=== PATIENT | female | born 1995 | race Caucasian/White ===

== ENCOUNTER 2017-10-05 18:44 | Emergency (ER) | payer MEDICAID ==
[~2017-10-05] VITALS: Ht 160 cm; Wt 61.4 kg
[~2017-10-05 18:44] MED LIST: NO HOME MEDS
[2017-10-05] MEDS ORDERED: cephalexin 250mg capsule PO ONE (18:55)
[2017-10-05] MEDS ORDERED: sulfamethoxazole/trimethoprim DS (800/160mg) tablet PO ONE (18:55)
[2017-10-05] MEDS ORDERED: TETanus/Pertussis (Acell)/Diphther VAC/PF (Tdap-Adult) 0.5ml syringe IM ONE (18:55)
[2017-10-05] MEDS ORDERED: HYDROcodone/acetaminophen 5mg/325mg tablet PO ONE (18:55)
[2017-10-05] MEDS ORDERED: bacitracin 15gm ointment TP ONE (19:40)
[2017-10-05] MEDS ORDERED: BACDS PO (19:41)
[2017-10-05] MEDS ORDERED: CEPH500C5 PO (19:41)
[2017-10-05] MEDS ORDERED: LIDOcaine 1.5% w/epinephrine 1:200,000 5ml ampul IJ ONE (19:45)
[2017-10-05] MEDS ORDERED: HYDR-3965 PO (19:57)
[2017-10-05 20:33] VITALS: BP 103/56
[2017-10-07] MEDS ORDERED: IBUP-1985 PO (17:08)
== END 2017-10-05 20:36 | disposition home or self-care (01) ==
LOC: ER 18:45
DX: S91.011A Laceration without foreign body, right ankle, initial encounter (principal); F15.10 Other stimulant abuse, uncomplicated; F17.210 Nicotine dependence, cigarettes, uncomplicated; V09.9XXA Pedestrian injured in unspecified transport accident, initial encounter; Y93.01 Activity, walking, marching and hiking; Y92.89 Other specified places as the place of occurrence of the external cause; Y99.9 Unspecified external cause status
CPT/HCPCS: 12001; 73610; 73630; 90471; 90715; 99284; A6446; A6449; J3490

== ENCOUNTER 2017-10-31 13:45 | Emergency (ER) | payer MEDICAID ==
[~2017-10-31] VITALS: Ht 160 cm; Wt 63.2 kg
[~2017-10-31 13:45] MED LIST changes: +BACDS PO; +CEPH500C5 PO; +HYDR-3965 PO; +IBUP-1985 PO
[2017-10-31] MEDS ORDERED: mupirocin 2% ointment 22GM TP STA (15:28)
[2017-10-31] MEDS ORDERED: CEPH-572 PO (16:01)
[2017-10-31 16:16] VITALS: BP 119/67
== END 2017-10-31 16:15 | disposition home or self-care (01) ==
LOC: ER 13:46
DX: Z48.00 Encounter for change or removal of nonsurgical wound dressing (principal); F15.10 Other stimulant abuse, uncomplicated; Z59.0 Homelessness
CPT/HCPCS: 87070; 87077; 87186; 99284; A6255

== ENCOUNTER 2017-11-04 12:00 | Day surgery (SDC) | payer MEDICAID ==
[~2017-11-04 12:00] MED LIST changes: +CEPH-572 PO
[2017-11-04] MEDS ORDERED: LIDOcaine 2% 5ml jelly ONE (12:06)
== END 2017-11-04 13:02 | disposition home or self-care (01) ==
LOC: WOUND CARE 12:00
PROVIDERS: ATTEND Surgery
DX: L97.311 Non-pressure chronic ulcer of right ankle limited to breakdown of skin (principal); F15.10 Other stimulant abuse, uncomplicated; Z79.899 Other long term (current) drug therapy; Z72.89 Other problems related to lifestyle; F17.210 Nicotine dependence, cigarettes, uncomplicated
CPT/HCPCS: 97597; A6021; A6206

== ENCOUNTER 2019-01-13 12:02 | Emergency (ER) | payer MEDICAID, OTHER ==
[~2019-01-13] VITALS: Ht 160 cm; Wt 71.8 kg
[~2019-01-13 12:02] MED LIST changes: -BACDS PO; -CEPH-572 PO; -CEPH500C5 PO; -HYDR-3965 PO; -NO HOME MEDS
[2019-01-13] MEDS ORDERED: orphenadrine citrate 60mg/2ml inj. IM ONE (12:30)
[2019-01-13] MEDS ORDERED: ketorolac tromethamine 15mg/ml inj. IM ONE (12:30)
[2019-01-13] MEDS ORDERED: IBUP-1985 PO (12:31)
[2019-01-13 12:49] VITALS: BP 132/68
== END 2019-01-13 13:20 | disposition home or self-care (01) ==
LOC: ER 12:03
DX: S40.012A Contusion of left shoulder, initial encounter (principal); F15.90 Other stimulant use, unspecified, uncomplicated; V03.99XA Pedestrian with other conveyance injured in collision with car, pick-up truck or van, unspecified whether traffic or nontraffic accident, initial encounter; Y93.89 Activity, other specified; Y92.488 Other paved roadways as the place of occurrence of the external cause; Y99.8 Other external cause status
CPT/HCPCS: 96372; 99283; J1885; J2360